=== PATIENT | female | born 1960 | race Caucasian/White ===

== ENCOUNTER 2018-10-12 00:05 | Emergency (ER) | payer OTHER ==
[~2018-10-12] VITALS: Ht 152.4 cm; Wt 59.0 kg
[2018-10-12 00:05] VITALS: BP 136/87
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
--- NOTE | 2018-10-12 00:05 | NUR ---
PT AMBULATED TO CHAIR C , [facility] AT CHAIR SIDE
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
[2018-10-12 00:48] VITALS: BP 136/87
== END 2018-10-12 00:47 | disposition home or self-care (01) ==
LOC: MED 00:05
DX: Z04.1 Encounter for examination and observation following transport accident (principal); Z02.89 Encounter for other administrative examinations; V89.2XXA Person injured in unspecified motor-vehicle accident, traffic, initial encounter; Y93.89 Activity, other specified; Y92.89 Other specified places as the place of occurrence of the external cause; Y99.8 Other external cause status
CPT/HCPCS: 99283